=== PATIENT | female | born 1990 | race Caucasian/White ===

== ENCOUNTER 2017-11-07 00:05 | Inpatient (IN) | payer OTHER ==
[2017-11-07 00:19] VITALS: BMI 25.8
--- NOTE | 2017-11-07 00:51 | PDOC ---
History of Present Illness - General Chief Complaint: Pain Stated Complaint: PAIN,BACK Time Seen by Provider: 11/07/17 00:23 - History of Present Illness Initial Comments: 11/07/17 00:44 CHIEF COMPLAINT: pain to rectum HISTORY OF PRESENT ILLNESS: 27 yo F with hx of hemorrhoids presents to ED with rectal pain x 2 days. Patient reports she was told to have "bottom hemorrhoid" removed before, "but I never followed up because it stopped hurting." She reports that the pain to her anus has become so severe she can not walk or sit without excruciating pain. She reports pain and difficulty with BM and even urination, but denies any rectal bleeding. Last BM was yesterday "but just a little bit because it hurt so much." Denies fever, but reports some nausea earlier today . PAST MEDICAL HISTORY: as per HPI FAMILY HISTORY: Denies SOCIAL HISTORY: Denies tobacco, alcohol, illicit drug use. SURGICAL HISTORY: Denies ALLERGIES: No known drug allergies REVIEW OF SYSTEMS General/Constitutional: Denies fever or chills. Denies weakness. HEENT: Denies change in vision. Denies ear pain or discharge. Denies sore throat. Cardiovascular: Denies chest pain or shortness of breath. Respiratory: Denies cough, wheezing, or hemoptysis. Gastrointestinal: Nausea earlier today. Denies vomiting, diarrhea or constipation. Denies rectal bleeding. Genitourinary: Severe pain to rectal area x 2 days. Musculoskeletal: Denies joint or muscle swelling or pain. Denies neck or back pain. Skin and breasts: Denies rash or easy bruising. Neurologic: Denies headache, vertigo, loss of consciousness, or loss of sensation. PHYSICAL EXAM General Appearance: Well-appearing, appropriately dressed. No apparent distress. HEENT: EOMI, PERRLA, normal ENT inspection, normal voice, TMs normal, pharynx normal. No conjunctival pallor. No photophobia, scleral icterus. Respiratory/Chest: Lungs CTAB. Cardiovascular: RRR. S1, S2. Gastrointestinal/Abdominal: Normal bowel sounds. Abdomen soft, non-distended. No tenderness or rebound tenderness. No organomegaly, pulsatile mass, guarding , hernia, hepatomegaly, splenomegaly. Rectal exam: Swollen linear vesicular nodule extending to entire gluteal cleft with TTP, without erythema, drainage, bleeding, streaking, or varices appreciated. Digital exam negative for tunneling or marked tenderness to internal anorectal region. Musculoskeletal/Extremities: Normal inspection. FROM of all extremities, normal capillary refill. Pelvis Stable. No CVA tenderness. No tenderness to extremities, pedal edema, swelling, erythema or deformity. Integumentary: Appropriate color, dry, warm. No cyanosis, erythema, jaundice or rash Neurologic: life enrichment specialist II-XII intact. Fully oriented, alert. Appropriate mood/affect. Motor strength 5/5. No appreciable EOM palsy, facial droop or sensory deficit. Past History - Past Medical History Allergies/Adverse Reactions: Allergies Allergy/AdvReac Type Severity Reaction Status Date / Time No Known Allergies Allergy Verified 11/07/17 00:18 Asthma: Yes COPD: No - Suicide/Smoking/Psychosocial Hx Smoking History: Never smoked *Physical Exam - Vital Signs Last Vital Signs Temp Pulse Resp BP Pulse Ox 98.4 F 94 H 18 133/71 100 11/07/17 00:06 11/07/17 00:06 11/07/17 00:06 11/07/17 00:06 11/07/17 00:06 ED Treatment Course - LABORATORY CBC & Chemistry Diagram: 11/07/17 00:53 11/07/17 00:53 - RADIOLOGY Radiology Studies Ordered: Category Date Time Status PELVIS CT WITH CONTRAST [CT] Stat CT Scan 11/07/17 00:41 Ordered Medical Decision Making - Medical Decision Making 11/07/17 00:51 27 yo F with hx of hemorrhoids presents to ED with rectal pain x 2 days. DDx includes thrombosed hemorrhoid vs perirectal abscess. -CT pelvis eval possible perirectal abscess -labs 11/07/17 01:32 WBC 17.8, labs otherwise unremarkable Awaiting CT. 11/07/17 03:27 CT positive for perirectal abscess, will admit for surgical consult in am. -morphine for pain -Levaquin & Flagyl IV -fluids 11/07/17 03:30 Discussed case with hospitalist resident MD Stearns; patient accepted for inpatient admission. 11/07/17 03:41 Patient's repeat VS - temp 99.7 and tachy to 97, will get blood cx and lactate to eval for sepsis prior to initiating abx. *DC/Admit/Observation/Transfer Diagnosis at time of Disposition: Perirectal abscess - Discharge Dispostion Decision to Admit order: Yes - Referrals - Patient Instructions - Post Discharge Activity
--- NOTE | 2017-11-07 01:00 | PDOC ---
*Physical Exam - Vital Signs Last Vital Signs Temp Pulse Resp BP Pulse Ox 98.4 F 94 H 18 133/71 100 11/07/17 00:06 11/07/17 00:06 11/07/17 00:06 11/07/17 00:06 11/07/17 00:06 ED Treatment Course - LABORATORY CBC & Chemistry Diagram: 11/07/17 00:53 11/07/17 00:53 Medical Decision Making - Medical Decision Making 11/07/17 01:00 agree with care from MIRIAN Sun *DC/Admit/Observation/Transfer Diagnosis at time of Disposition: Perirectal abscess - Discharge Dispostion Condition at time of disposition: Improved - Referrals - Patient Instructions - Post Discharge Activity
[2017-11-07 01:05] LABS: HEMATOCRIT 41.3 % (32.4-45.2); HEMOGLOBIN 13.7 GM/dL (10.7-15.3); MCH 28.9 pg (25.7-33.7); MCHC 33.1 g/dl (32.0-36.0); MEAN CELL VOLUME 87.4 fl (80-96); MEAN PLT VOLUME 8.4 fl (7.5-11.1); PLATELET COUNT 348 K/MM3 (134-434); RBC 4.73 M/mm3 (3.60-5.2); RDW 12.9 % (11.6-15.6); WHITE BLOOD COUNT 17.8 K/mm3 (4.0-10.0)
[2017-11-07 01:19] LABS: INR 1.07 (0.82-1.09); PROTHROMBIN TIME (PATIENT) 12.1 SEC (9.7-13.0)
[2017-11-07 01:22] LABS: ACTIVATED PTT 36.1 SECONDS (25.2-36.5)
[2017-11-07 01:29] LABS: ALBUMIN 4.3 g/dl (3.4-5.0); ALK PHOS 101 U/L (45-117); ANION GAP 11 (8-16); BILIRUBIN,TOTAL 0.3 mg/dL (0.2-1.0); BLOOD UREA NITROGEN 13 mg/dL (7-18); CALCIUM 8.9 mg/dL (8.5-10.1); CHLORIDE 107 mmol/L (98-107); CO2 24 mmol/L (21-32); CREATININE 0.6 mg/dL (0.55-1.02); GLUCOSE,RANDOM 90 mg/dL (74-106); POTASSIUM 3.5 mmol/L (3.5-5.1); SGOT/AST 15 U/L (15-37); SGPT/ALT 17 U/L (12-78); SODIUM 142 mmol/L (136-145); TOT PROT 7.4 g/dl (6.4-8.2)
[2017-11-07] MEDS ORDERED: morphine CARPU-JECT 2 MG/1 ML DISP.SYRIN IVPUSH ONE (03:26)
[2017-11-07] MEDS ORDERED: MORPHINE SULFATE 2 MG/ML VIAL ONE ×2 (03:32→08:12)
[2017-11-07] MEDS ORDERED: ACETAMINOPHEN 325 MG TABLET (FP) PO ONE (03:38)
[2017-11-07] MEDS: LACTATED RINGERS SOLUTION 1,000 ML/1,000 ML INFUS.BAG IV SCH ×2 (03:40→08:43)
[2017-11-07] MEDS ORDERED: ACETAMINOPHEN 325 MG TABLET (FP) ONE (03:53)
--- NOTE | 2017-11-07 03:58 | PN ---
Teaching Attending Note Name of Resident: Casa Feng ATTENDING PHYSICIAN STATEMENT I saw and evaluated the patient. I reviewed the resident's note and discussed the case with the resident. I agree with the resident's findings and plan as documented. SUBJECTIVE: Patient is a 27 year old woman with PMH of hemorrhoids who presents to ER with rectal pain for 2 days. Patient reports she was told to have "bottom hemorrhoid " removed before, but I never followed up because it stopped hurting. She reports that the pain has become so severe she can not walk or sit without excruciating pain. She reports pain and difficulty with BM and even urination, but denies any rectal bleeding. Last BM was yesterday "but just a little bit because it hurt so much." She has some constipation. Denies fever, but reports some nausea earlier today. OBJECTIVE: Alert and in no acute distress Vital Signs Period Temp Pulse Resp BP Sys/Guillaume Pulse Ox Last 24 Hr 98.4 F-99.7 F 94-97 18-18 133-136/71-79 100-100 HEENT: No Jaundice, eye redness or discharge, PERRLA, EOMI. Normocephalic, atraumatic. External ears are normal and hearing is grossly intact. No nasal discharge. Neck: Supple, nontender. No palpable adenopathy or thyromegaly. No JVD Chest: Good effort. Clear to auscultation and percussion. Heart: Regular. No S3, rub or murmur Abdomen: Not distended, soft, nontender and no HSM. No rebound or guarding. Normoactive bowel sounds. Ext: Peripheral pulses intact. No leg edema. Abscess along the medial left gluteal cleft - tender. Skin: Warm and dry. No petechiae, rash or ecchymosis. Neuro: Alert. Oriented x3. CN 2-12 grossly intact. Sensation grossly intact in all four extremities and DTR are symmetric. Current Medications Generic Name Dose Route Start Last Admin Trade Name Freq PRN Reason Stop Dose Admin Metronidazole 500 mg in 100 mls @ 100 mls/hr 11/07/17 03:23 11/07/17 03:40 Flagyl 500mg Premixed Ivpb - IVPB 11/07/17 04:22 100 mls/hr ONCE ONE Administration Levofloxacin 750 mg in 150 mls @ 100 mls/hr 11/07/17 03:23 Levaquin 750 Mg Premixed Ivpb - IVPB 11/07/17 04:52 ONCE ONE Protocol Lactated Ringer's 1,000 ml in 1,000 mls @ 100 mls/hr 11/07/17 03:30 11/07/17 03:40 Lactated Ringers Solution IV 100 mls/hr ASDIR KAMALA Administration Abnormal Lab Results 11/07/17 00:53 WBC 17.8 H ASSESSMENT AND PLAN: 1. Perirectal Abscess - CT scan of the pelvis confirms a 3.4 x 1.6 cm midline posterior perirectal abscess. Will treat with IV Flagyl 500 mg q 8 hours and Levofloxacin 750 mg IV QD, IV LR at 100 ml/hour and consult the surgeon. Keep her NPO. Would benefit from sitz bath if surgery is not an immediate option. Morphine IV for pain control and Miralax for constipation. 2. DVT prophylaxis - Heparin 5000u sq tid. 3. Advance directives - Full code
[2017-11-07] MEDS ORDERED: POLYETHYLENE GLYCOL 3350 119 GM BTL PO ONE (05:00)
[2017-11-07] MEDS ORDERED: SODIUM CHLORIDE 1,000 ML IV SCH (05:00)
[2017-11-07] MEDS ORDERED: LACTATED RINGERS SOLUTION 1,000 ML/1,000 ML INFUS.BAG IV SCH ×2 (05:00→10:26)
--- NOTE | 2017-11-07 05:24 | HP ---
CHIEF COMPLAINT: perirectal pain PCP: HISTORY OF PRESENT ILLNESS: 27 y/o female with PMH asthma, and hemorrhoids, presents with worsening rectal pain for the past two days. States that the pain was sharp, gradual in onset, and exacerbated with bowel movement. At its worst pain is 10/10 and localized to perianal area and associated with nausea. Denies hematochezia or drainage, but admits to scant blood on tissue paper after bowel movement. Admits to constipation ever since she was young, that she self medicated with OTC fiber supplements. She endorses history of hemorrhoids for the past two years. She did not seek follow up for excision of hemorrhoids after diagnosis as she was unable to take time from work. Denies fevers, chills, shortness of breath, chest pain, vomiting, diarrhea, melena. ER course was notable for: (1) Morphine, Metronidazole, Levofloxacin, LR, Tylenol (2) CT abdomen/ pelvis (3) Recent Travel: PAST MEDICAL HISTORY: asthma, hemorrhoids PAST SURGICAL HISTORY: denies Social History: Smoking: denies Alcohol: denies Drugs: denies Family History: denies significant family history Allergies NKDA No Known Allergies Allergy (Verified 11/07/17 00:18) HOME MEDICATIONS: REVIEW OF SYSTEMS CONSTITUTIONAL: Absent: fever, chills, diaphoresis, generalized weakness, malaise, loss of appetite. CARDIOVASCULAR: Absent: chest pain, syncope, lightheadedness, peripheral edema RESPIRATORY: Absent: cough, shortness of breath, dyspnea with exertion, hemoptysis GASTROINTESTINAL: Admits: constipation, dyschezia, nausea. Denies: abdominal pain, abdominal distension, vomiting, diarrhea, hematochezia GENITOURINARY: Absent: dysuria, frequency, urgency, hesitancy, hematuria, flank pain, genital pain NEUROLOGIC: Absent: headache, focal weakness or paresthesias, dizziness, PHYSICAL EXAMINATION Vital Signs - 24 hr 11/07/17 11/07/17 00:06 03:30 Temperature 98.4 F 99.7 F H Pulse Rate 94 H Pulse Rate [ 97 H Apical] Respiratory 18 18 Rate Blood Pressure 133/71 Blood Pressure 136/79 [Left Arm] O2 Sat by Pulse 100 100 Oximetry (%) GENERAL: Awake, alert, and fully oriented, in no acute distress. HEAD: Normal with no signs of trauma. EYES: Pupils equal, round and reactive to light, extraocular movements intact. EARS, NOSE, THROAT: Oropharynx clear without exudates. Moist mucous membranes. NECK: Normal range of motion, supple without lymphadenopathy. LUNGS: Breath sounds equal, clear to auscultation bilaterally. No wheezes, and no crackles. No accessory muscle use. HEART: Regular rate and rhythm, normal S1 and S2 without murmur, rub or gallop. ABDOMEN: Soft, nontender, not distended, normoactive bowel sounds, no guarding, no rebound, no masses. No hepatomegaly or splenomegaly. RECTAL: External hemorrhoid noted at 6 o'clock with swelling perianally along left gluteal cleft. Exquisitely tender to palpation. No bleeding, no drainage noted. EXTREMITIES: 2+ pulses, warm, well-perfused. No lower extremity edema. NEUROLOGICAL: Cranial nerves II-XII intact. Normal speech. PSYCHIATRIC: Cooperative. Appropriate mood and affect. Laboratory Results - last 24 hr 11/07/17 11/07/17 11/07/17 00:53 00:53 00:53 WBC 17.8 H RBC 4.73 Hgb 13.7 Hct 41.3 MCV 87.4 MCH 28.9 MCHC 33.1 RDW 12.9 Plt Count 348 MPV 8.4 PT with INR 12.10 INR 1.07 PTT (Actin FS) 36.1 Sodium Potassium Chloride Carbon Dioxide Anion Gap BUN Creatinine Creat Clearance w eGFR Random Glucose Lactic Acid Calcium Total Bilirubin AST ALT Alkaline Phosphatase Total Protein Albumin Urine HCG, Qual Negative 11/07/17 11/07/17 00:53 03:50 WBC RBC Hgb Hct MCV MCH MCHC RDW Plt Count MPV PT with INR INR PTT (Actin FS) Sodium 142 Potassium 3.5 Chloride 107 Carbon Dioxide 24 Anion Gap 11 BUN 13 Creatinine 0.6 Creat Clearance w eGFR > 60 Random Glucose 90 Lactic Acid 1.3 Calcium 8.9 Total Bilirubin 0.3 AST 15 ALT 17 Alkaline Phosphatase 101 Total Protein 7.4 Albumin 4.3 Urine HCG, Qual ASSESSMENT/PLAN: 27 y/o female with PMH asthma, and hemorrhoids, presents with worsening rectal pain for the past two days. Perirectal abscess -WBC 17.8, CT abdomen/ pelvis shows 3.4cm X 1.6cm midline perirectal abscess -F/U surgery consult for I&D -F/U blood cultures -Levofloxacin and Metronidazole -Miralax for constipation -Morphine for pain -IV LR -NPO FEN -IV Lactated Ringers at 100ml/ hr -No electrolyte abnormalities at this time -NPO pending surgery consult Prophylaxis -Heparin 5000units subq TID Disposition: Admit to medical-surgical floor Advance directives: full code Case discussed with outdoor recreation specialist attending. Visit type - Emergency Visit Emergency Visit: Yes ED Registration Date: 11/07/17 Care time: The patient presented to the Emergency Department on the above date and was hospitalized for further evaluation of their emergent condition. - New Patient This patient is new to me today: Yes Date on this admission: 11/07/17 - Critical Care Critical Care patient: No Hospitalist Screening - Colonoscopy Questionnaire Colonoscopy Questionnaire: Colonoscopy Questionnaire - Patient: 50 - 75 years old and never had a screening colonoscopy: Unknown History of colon or rectal polyps, or CA: Unknown History of IBD, Crohn's disease or UC: Unknown History of abdominal radiation therapy as a child: Unknown - Relative: 1 with colon or rectal CA, or polyps at age 60 or younger: Unknown Colon or rectal CA diagnosed at age 45 or younger: Unknown Multiple relatives with colon or rectal CA: Unknown - Outcome: Screening Result: Negative Screen
[2017-11-07] MEDS ORDERED: HEPARIN NA (PORCINE) 5,000 UNITS/ML 1ML VIAL ONE (05:32)
[2017-11-07] MEDS ORDERED: MORPHINE SULFATE 2 MG/ML VIAL IVPUSH PRN ×4 (05:38→16:28)
[2017-11-07] MEDS ORDERED: HEPARIN NA (PORCINE) 5,000 UNITS/ML 1ML VIAL SQ SCH (06:00)
--- NOTE | 2017-11-07 07:54 | PN ---
Physical Exam: SUBJECTIVE: Patient seen and examined at bedside. Complains of severe, worsening perianal pain of 3 days duration and mild intermittent nausea. No vomiting/constipaton/diarrhea, normal urination, no fevers or chills, no respiratory difficulty, no other complaints. OBJECTIVE: Vital Signs Period Temp Pulse Resp BP Sys/Guillaume Pulse Ox Last 24 Hr 98.4 F-99.7 F 94-97 18-18 133-136/71-79 100-100 GENERAL: The patient is awake, alert, and fully oriented, in no acute distress. HEAD: Normal with no signs of trauma. EYES: PERRLA, EOMI, sclera anicteric, conjunctiva clear, no ptosis ENT: Ears normal, nares patent, oropharynx clear without exudates, moist mucous membranes NECK: Trachea midline, full range of motion, supple. LUNGS: Breath sounds equal, clear to auscultation bilaterally, no wheezes, no crackles, no accessory muscle use HEART: Regular rate and rhythm, S1, S2 without murmur, rub or gallop. ABDOMEN: Soft, nontender, nondistended, normoactive bowel sounds, no guarding, no rebound, no hepatosplenomegaly, no masses EXTREMITIES: 2+ pulses, warm, well-perfused, no edema. NEUROLOGICAL: CNII-XII intact b/l, 5/5 strength x 4 extremities, sensorium intact PSYCH: Normal mood, normal affect. SKIN: Warm, dry, normal turgor, no rashes or lesions noted Rectal: 3-4 cm fluctuant midline manuela-anal abscess, mildly tender to palpation, per patient tenderness has decreased significantly since receiving morphine Laboratory Results - last 24 hr 11/07/17 11/07/17 11/07/17 00:53 00:53 00:53 WBC 17.8 H RBC 4.73 Hgb 13.7 Hct 41.3 MCV 87.4 MCH 28.9 MCHC 33.1 RDW 12.9 Plt Count 348 MPV 8.4 PT with INR 12.10 INR 1.07 PTT (Actin FS) 36.1 Sodium Potassium Chloride Carbon Dioxide Anion Gap BUN Creatinine Creat Clearance w eGFR Random Glucose Lactic Acid Calcium Total Bilirubin AST ALT Alkaline Phosphatase Total Protein Albumin Urine HCG, Qual Negative 11/07/17 11/07/17 00:53 03:50 WBC RBC Hgb Hct MCV MCH MCHC RDW Plt Count MPV PT with INR INR PTT (Actin FS) Sodium 142 Potassium 3.5 Chloride 107 Carbon Dioxide 24 Anion Gap 11 BUN 13 Creatinine 0.6 Creat Clearance w eGFR > 60 Random Glucose 90 Lactic Acid 1.3 Calcium 8.9 Total Bilirubin 0.3 AST 15 ALT 17 Alkaline Phosphatase 101 Total Protein 7.4 Albumin 4.3 Urine HCG, Qual Active Medications Generic Name Dose Route Start Last Admin Trade Name Freq PRN Reason Stop Dose Admin Heparin Sodium (Porcine) 5,000 unit 11/07/17 06:00 11/07/17 05:38 Heparin - SQ 5,000 unit TID KAMALA Administration Lactated Ringer's 1,000 ml in 1,000 mls @ 100 mls/hr 11/07/17 03:30 11/07/17 03:40 Lactated Ringers Solution IV 100 mls/hr ASDIR KAMALA Administration Lactated Ringer's 1,000 ml in 1,000 mls @ 100 mls/hr 11/07/17 05:00 11/07/17 05:28 Lactated Ringers Solution IV Not Given ASDIR KAMALA Levofloxacin 750 mg in 150 mls @ 150 mls/hr 11/08/17 10:00 Levaquin 750 Mg Premixed Ivpb - IVPB DAILY KAMALA Protocol Metronidazole 500 mg in 100 mls @ 100 mls/hr 11/07/17 10:00 Flagyl 500mg Premixed Ivpb - IVPB Q8H-IV KAMALA Morphine Sulfate 2 mg 11/07/17 05:38 Morphine Sulfate IVPUSH Q6H PRN PAIN LEVEL 7 - 10 ASSESSMENT/PLAN: 27 y/o F w/ PMHx asthma and hemorrhoids, admitted for perianal abscess #Perianal abscess -WBC 17.8 and HR 97, therefore meets sepsis criteria -CT abdomen/ pelvis shows 3.6 X 2.5 x 4.4 cm fluid collection -fluctuant, closed midline lesion -underwent surgical I&D without complication -ID consulted -f/u blood cultures, awaiting abscess culture -IV levofloxacin and metronidazole empirically -Morphine for pain -IV LR #FEN -IV LR @ 75 -lytes wnl -regular diet after Sx #PPx -heparin subq -senna/colace #Dispo -med/surg #Code -full Visit type - Emergency Visit Emergency Visit: No - New Patient This patient is new to me today: Yes Date on this admission: 11/07/17 - Critical Care Critical Care patient: No
--- NOTE | 2017-11-07 09:37 | CONSULT ---
Consult Consult Specialty:: General Surgery Referred by:: Dr. Sun Reason for Consultation:: perirectal abscess - History of Present Illness Chief Complaint: low back/perirectal pain x 3d with swelling History of Present Illness: 27yo F with asthma not on maintenance meds, IUD, hemorrhoids presents to ER with 3d of low back/anorectal pain progressively worsening and then associated with local swelling and more difficulty with stooling. Last BM was small and loose. No F/C, + nausea but no vomiting, last po was last night except a little water in ED. In ER, she is afebrile but temp now 99.7, has wbc 17.8, and CT shows posterior perirectal abscess in midline. She has gotten IV fluids, antibiotics and pain meds. She was admitted to hospitalist team overnight by ED. Surgery is consulted for drainage. Pt is seen and examined in ER holding area. She is uncomfortable but better after medication. She reports pain slightly more to left side. Ambulated to bathroom just after exam. - History Source History Provided By: Patient Limitations to Obtaining History: No Limitations - Past Medical History Pulmonary: Yes: Asthma Gastrointestinal: Yes: Hemorrhoids ...: No - Past Surgical History Past Surgical History: Yes: None Additional Surgical History: IUD placement - Alcohol/Substance Use Hx Alcohol Use: Yes (social) History of Substance Use: reports: None - Smoking History Smoking history: Never smoked Have you smoked in the past 12 months: No - Social History ADL: Independent Occupation: salesperson/international manager Medications - Allergies Allergies/Adverse Reactions: Allergies Allergy/AdvReac Type Severity Reaction Status Date / Time No Known Allergies Allergy Verified 11/07/17 00:18 - Home Medications Home Medications (free text): albuterol inhaler prn - uses 4-5x/year, last time was ~6mos ago Family Disease History - Family Disease History Family History: Unremarkable (noncontributory) Review of Systems - Review of Systems Constitutional: denies: Chills, Fever Eyes: denies: Blurred Vision, Recent Change in Vision HENT: denies: Difficult Swallowing, Throat Pain Neck: denies: Swollen Glands, Tenderness Cardiovascular: denies: Chest Pain, Palpitations Respiratory: denies: Cough, SOB Gastrointestinal: reports: Nausea. denies: Abdominal Pain, Constipation, Diarrhea, Vomiting Genitourinary: denies: Burning, Dysuria Musculoskeletal: reports: Back Pain (lower/anorectal pain). denies: Joint Pain , Muscle Pain Integumentary: reports: Lump (posterior anorectal area). denies: Change in Color, Rash Neurological: denies: Dizziness, Headache Psychiatric: denies: Anxiety, Depression Physical Exam Vital Signs: Vital Signs Temperature 99.7 F H 11/07/17 03:30 Pulse Rate 97 H 11/07/17 03:30 Respiratory Rate 18 11/07/17 03:30 Blood Pressure 136/79 11/07/17 03:30 O2 Sat by Pulse Oximetry (%) 100 11/07/17 03:30 Constitutional: Yes: Well Nourished, No Distress, Calm Eyes: Yes: Conjunctiva Clear, EOM Intact HENT: Yes: Atraumatic, Normocephalic Neck: Yes: Supple, Trachea Midline Cardiovascular: Yes: Regular Rate and Rhythm. No: Murmur Respiratory: Yes: Regular, CTA Bilaterally Gastrointestinal: Yes: Normal Bowel Sounds, Soft. No: Distention, Tenderness ...Rectal Exam: Yes: Inflammation, Sphincter Tone Normal, Other (tender swelling in midline extending posteriorly from anus over 3-4cm; no mass or gross blood internally, tender posteriorly not anteriorly, no purulence; hemorrhoid not clearly appreciated at this time) Renal/: No: CVA Tenderness - Left, CVA Tenderness - Right Musculoskeletal: No: Joint Stiffness, Joint Swelling Extremities: No: Cool, Cyanosis Edema: No Peripheral Pulses WNL: Yes Integumentary: Yes: Body Piercing (left nasal piercing), Tattoos. No: Jaundice , Rash Neurological: Yes: Alert, Oriented. No: Unsteady Gait Psychiatric: Yes: Alert, Oriented Labs: CBC, BMP 11/07/17 00:53 11/07/17 00:53 CMP Sodium 142 mmol/L (136-145) 11/07/17 00:53 Potassium 3.5 mmol/L (3.5-5.1) 11/07/17 00:53 Chloride 107 mmol/L (98-107) 11/07/17 00:53 Carbon Dioxide 24 mmol/L (21-32) 11/07/17 00:53 Anion Gap 11 (8-16) 11/07/17 00:53 BUN 13 mg/dL (7-18) 11/07/17 00:53 Creatinine 0.6 mg/dL (0.55-1.02) 11/07/17 00:53 Creat Clearance w eGFR > 60 (>60) 11/07/17 00:53 Random Glucose 90 mg/dL (74-106) 11/07/17 00:53 Lactic Acid 1.3 mmol/L (0.0-2.0) 11/07/17 03:50 Calcium 8.9 mg/dL (8.5-10.1) 11/07/17 00:53 Total Bilirubin 0.3 mg/dL (0.2-1.0) 11/07/17 00:53 AST 15 U/L (15-37) 11/07/17 00:53 ALT 17 U/L (12-78) 11/07/17 00:53 Alkaline Phosphatase 101 U/L (45-117) 11/07/17 00:53 Total Protein 7.4 g/dl (6.4-8.2) 11/07/17 00:53 Albumin 4.3 g/dl (3.4-5.0) 11/07/17 00:53 INR, PTT INR 1.07 (0.82-1.09) 11/07/17 00:53 Imaging - Results Cat Scan: Report Reviewed, Image Reviewed (images personally reviewed - posterior midline perirectal abscess with ~3x4cm fluid collection, inflammation possibly slightly more on left than right) Problem List - Problems (1) Perirectal abscess Assessment/Plan: admitted to hospitalist by ER pain meds prn NPO/IVF until after OR IV antibiotics started (Levo/Flagyl), ID consulted Pt reports possible PCN allergy in childhood per parents, unknown reaction Discussed with patient risks, benefits and alternatives of incision and drainage of perirectal abscess, including but not limited to bleeding, infection , injury to adjacent structures (sphincter), anal fistula; alternatives include antibiotics, delayed or no surgery - risks of this include sepsis, fistula, need for more extensive surgery. Patient desires to proceed with operation - will take to OR for above. Informed consent signed for same. anticipate resumption of po postoperatively will need bowel regimen to ensure soft, regular BMs Code(s): K61.1 - RECTAL ABSCESS (2) Anorectal pain Code(s): K62.89 - OTHER SPECIFIED DISEASES OF ANUS AND RECTUM (3) Leukocytosis Code(s): D72.829 - ELEVATED WHITE BLOOD CELL COUNT, UNSPECIFIED Qualifiers: Leukocytosis type: unspecified Qualified Code(s): D72.829 - Elevated white blood cell count, unspecified (4) Asthma Assessment/Plan: MDI or nebs prn Code(s): J45.909 - UNSPECIFIED ASTHMA, UNCOMPLICATED Qualifiers: Asthma severity: mild Asthma persistence: intermittent Asthma complication type: uncomplicated Qualified Code(s): J45.20 - Mild intermittent asthma, uncomplicated
[2017-11-07] MEDS ORDERED: MEROPENEM 1 GM in DEXTROSE 5%-WATER 100 ML IVPB ONE (12:03)
[2017-11-07] MEDS ORDERED: MIDAZOLAM HCL 2 MG/2 ML SINGLE DOSE VIAL ONE (14:19)
[2017-11-07] MEDS ORDERED: PROPOFOL 20 ML ONE ×2 (14:29→14:48)
[2017-11-07] MEDS ORDERED: LIDOCAINE HCL/PF 2% SDV 5ML VIAL ONE (14:33)
[2017-11-07] MEDS ORDERED: DEXAMETHASONE SOD PHOSPHATE 4 MG/1 ML VIAL ONE (14:33)
[2017-11-07] MEDS ORDERED: ONDANSETRON 4 MG/2 ML VIAL ONE (14:33)
[2017-11-07] MEDS ORDERED: ACETAMINOPHEN 325 MG TABLET (FP) PO SCH (15:00)
[2017-11-07] MEDS ORDERED: ONDANSETRON 4 MG/2 ML VIAL IVPUSH PRN (15:17)
--- NOTE | 2017-11-07 15:21 | OP ---
Operative Note - Note: Operative Date: 11/07/17 Pre-Operative Diagnosis: posterior perirectal abscess Operation: incision and drainage of posterior perirectal abscess Findings: ~30ml pus, culture taken; tip of 24Fr coude catheter left in abscess cavity, sutured to skin Post-Operative Diagnosis: Same as Pre-op Surgeon: Aubrey Urbina Machine Repairer: Sulema Farris Anesthesiologist/COMMUNICATION CONSULTANT: Nikko Merino Anesthesia: General (without airway) Specimens Removed: culture swab to micro Estimated Blood Loss (mls): 5 Drains & Tubes with Location: 24Fr coude catheter tip in abscess cavity Fluid Volume Replaced (mls): 400 (crystalloid) Operative Report Dictated: Yes
[2017-11-07] MEDS ORDERED: LACTATED RINGERS SOLUTION 1,000 ML IV SCH (15:30)
[2017-11-07] MEDS ORDERED: oxyCODONE HCL 5 MG TABLET PO PRN ×2 (15:30→16:28)
[2017-11-07] MEDS ORDERED: IBUPROFEN 600 MG TABLET (FP) PO SCH (18:00)
[2017-11-07] MEDS ORDERED: CLINDAMYCIN 600MG PREMIX IVPB 600 MG/50 ML BAG IVPB SCH (18:00)
[2017-11-07] MEDS: CLINDAMYCIN 600MG PREMIX IVPB 600 MG/50 ML BAG IVPB SCH (18:21)
[2017-11-07] MEDS: IBUPROFEN 600 MG TABLET (FP) PO SCH (18:21)
--- NOTE | 2017-11-07 18:34 | CON.ID ---
Consult Consult Specialty:: infectious diseases Referred by:: dr baig Reason for Consultation:: glueteal abscess - History of Present Illness Chief Complaint: rectal pain and swelling History of Present Illness: 27yo F with asthma , IUD, hemorrhoids came to the hospital because of couple of days of ano rectal pain which was associated with stooling and loose bm patient was worked up in the ER including and CT shows posterior perirectal abscess in midline. surgery evaluated and the patient was taken to the operating room and patient underwent i and d of the abscess i was called on board for abx management and the abx patient needs - History Source History Provided By: Patient Limitations to Obtaining History: No Limitations - Past Medical History Pulmonary: Yes: Asthma Gastrointestinal: Yes: Hemorrhoids ...: No - Past Surgical History Past Surgical History: Yes: None Additional Surgical History: IUD placement - Alcohol/Substance Use Hx Alcohol Use: Yes (social) History of Substance Use: reports: None - Smoking History Smoking history: Never smoked Have you smoked in the past 12 months: No - Social History ADL: Independent Occupation: salesperson/plant engineering manager Medications - Allergies Allergies/Adverse Reactions: Allergies Allergy/AdvReac Type Severity Reaction Status Date / Time Penicillins Allergy Unknown Unverified 11/07/17 11:11 - Home Medications Home Medications: Ambulatory Orders Albuterol Sulfate Inhaler - IH 11/07/17 Acetaminophen [Tylenol .Regular Strength -] 650 mg PO Q6H tablet 11/08/17 Ibuprofen [Motrin -] 600 mg PO Q6H tablet 11/08/17 Sulfamethoxazole/Trimethoprim [Bactrim Ds -] 1 tab PO BID #10 tablet 11/08/17 Review of Systems - Review of Systems Constitutional: reports: No Symptoms Eyes: reports: No Symptoms HENT: reports: No Symptoms Neck: reports: No Symptoms Cardiovascular: reports: No Symptoms Respiratory: reports: No Symptoms Gastrointestinal: reports: No Symptoms Musculoskeletal: reports: No Symptoms Integumentary: reports: No Symptoms Neurological: reports: No Symptoms Endocrine: reports: No Symptoms Hematology/Lymphatic: reports: No Symptoms Psychiatric: reports: No Symptoms Physical Exam Vital Signs: Vital Signs Temperature 98.3 F 11/07/17 17:16 Pulse Rate 80 11/07/17 17:16 Respiratory Rate 16 11/07/17 17:16 Blood Pressure 121/57 11/07/17 17:16 O2 Sat by Pulse Oximetry (%) 99 11/07/17 17:14 Constitutional: Yes: Well Nourished, Calm, Mild Distress Eyes: Yes: Conjunctiva Clear HENT: Yes: Atraumatic, Normocephalic Neck: Yes: Supple, Trachea Midline Cardiovascular: Yes: Regular Rate and Rhythm Respiratory: Yes: Regular, CTA Bilaterally Gastrointestinal: Yes: Normal Bowel Sounds, Soft ...Rectal Exam: Yes: Other (dressing present) Musculoskeletal: Yes: WNL Extremities: Yes: WNL Integumentary: Yes: Other Wound/Incision: Yes: Dressing Dry and Intact Neurological: Yes: Alert, Oriented Psychiatric: Yes: Alert, Oriented Labs: CBC, BMP 11/07/17 00:53 11/07/17 00:53 Imaging - Results Cat Scan: Report Reviewed, Image Reviewed Assessment/Plan Problem List - Problems (1) Perirectal abscess Code(s): K61.1 - RECTAL ABSCESS (2) Anorectal pain Code(s): K62.89 - OTHER SPECIFIED DISEASES OF ANUS AND RECTUM (3) Leukocytosis Code(s): D72.829 - ELEVATED WHITE BLOOD CELL COUNT, UNSPECIFIED Qualifiers: Leukocytosis type: unspecified Qualified Code(s): D72.829 - Elevated white blood cell count, unspecified (4) Asthma Code(s): J45.909 - UNSPECIFIED ASTHMA, UNCOMPLICATED Qualifiers: Asthma severity: mild Asthma persistence: intermittent Asthma complication type: uncomplicated Qualified Code(s): J45.20 - Mild intermittent asthma, uncomplicated plan continue iv abx await for cx report once we have that and surgery clears then will decide what abx patient will go home on rest as per the team
--- NOTE | 2017-11-07 19:43 | PN ---
Teaching Attending Note Name of Resident: Adi Lackey ATTENDING PHYSICIAN STATEMENT I saw and evaluated the patient. I reviewed the resident's note and discussed the case with the resident. I agree with the resident's findings and plan as documented. SUBJECTIVE: Patient is s/p I&D, feeling better. OBJECTIVE: Vital Signs Temperature 98.3 F 11/07/17 18:00 Pulse Rate 80 11/07/17 18:00 Respiratory Rate 20 11/07/17 18:00 Blood Pressure 121/57 11/07/17 18:00 O2 Sat by Pulse Oximetry (%) 99 11/07/17 17:14 CBCD WBC 17.8 K/mm3 (4.0-10.0) H 11/07/17 00:53 RBC 4.73 M/mm3 (3.60-5.2) 11/07/17 00:53 Hgb 13.7 GM/dL (10.7-15.3) 11/07/17 00:53 Hct 41.3 % (32.4-45.2) 11/07/17 00:53 MCV 87.4 fl (80-96) 11/07/17 00:53 MCHC 33.1 g/dl (32.0-36.0) 11/07/17 00:53 RDW 12.9 % (11.6-15.6) 11/07/17 00:53 Plt Count 348 K/MM3 (134-434) 11/07/17 00:53 MPV 8.4 fl (7.5-11.1) 11/07/17 00:53 CMP Sodium 142 mmol/L (136-145) 11/07/17 00:53 Potassium 3.5 mmol/L (3.5-5.1) 11/07/17 00:53 Chloride 107 mmol/L (98-107) 11/07/17 00:53 Carbon Dioxide 24 mmol/L (21-32) 11/07/17 00:53 Anion Gap 11 (8-16) 11/07/17 00:53 BUN 13 mg/dL (7-18) 11/07/17 00:53 Creatinine 0.6 mg/dL (0.55-1.02) 11/07/17 00:53 Creat Clearance w eGFR > 60 (>60) 11/07/17 00:53 Random Glucose 90 mg/dL (74-106) 11/07/17 00:53 Calcium 8.9 mg/dL (8.5-10.1) 11/07/17 00:53 Total Bilirubin 0.3 mg/dL (0.2-1.0) 11/07/17 00:53 AST 15 U/L (15-37) 11/07/17 00:53 ALT 17 U/L (12-78) 11/07/17 00:53 Alkaline Phosphatase 101 U/L (45-117) 11/07/17 00:53 Total Protein 7.4 g/dl (6.4-8.2) 11/07/17 00:53 Albumin 4.3 g/dl (3.4-5.0) 11/07/17 00:53 Current Medications Generic Name Dose Route Start Last Admin Trade Name Freq PRN Reason Stop Dose Admin Acetaminophen 650 mg 11/07/17 21:00 Tylenol - PO Q6H KAMALA Bisacodyl 10 mg 11/08/17 10:00 Dulcolax - PO DAILY [facility] Docusate Sodium 300 mg 11/07/17 22:00 Colace - PO HS KAMALA Clindamycin Phosphate 600 mg in 50 mls @ 100 mls/hr 11/07/17 18:00 11/07/17 18:21 Cleocin 600 Mg Premix Ivpb - IVPB 100 mls/hr Q8H-IV KAMALA Administration Protocol Meropenem 1 gm/ Dextrose 100 mls @ 200 mls/hr 11/07/17 20:00 IVPB Q8H-IV KAMALA Ibuprofen 600 mg 11/07/17 18:00 11/07/17 18:21 Motrin - PO 600 mg Q6H KAMALA Administration Morphine Sulfate 2 mg 11/07/17 16:28 Morphine Sulfate IVPUSH Q4H PRN Pain Level 7 - 10 BREAKTHROUGH Oxycodone HCl 5 mg 11/07/17 16:28 Roxicodone - PO Q4H PRN Pain Level 7 - 10 BREAKTHROUGH Home Medications Medication Instructions Recorded Albuterol Sulfate Inhaler - 11/07/17 PE: per resident's note ASSESSMENT AND PLAN: Patient is a 27 y/o F w/ PMHx asthma and hemorrhoids, admitted for perianal abscess #POD#0 Perianal abscess s/p surgical I&D without complication, IVF, morphine for pain on IV meropenem and Clindamycin day #1 as per ID DVt Px: heparin subq
[2017-11-07] MEDS: MEROPENEM 1 GM in DEXTROSE 5%-WATER 100 ML IVPB SCH (21:05)
[2017-11-07] MEDS: ACETAMINOPHEN 325 MG TABLET (FP) PO SCH (21:06)
[2017-11-07] MEDS ORDERED: DOCUSATE SODIUM 100 MG CAPSULE (FP) PO SCH ×2 (22:00)
[2017-11-07] MEDS ORDERED: SENNOSIDES/DOCUSATE COMBO (SENNA PLUS) TABLET (UD) PO SCH (22:00)
[2017-11-08] MEDS: IBUPROFEN 600 MG TABLET (FP) PO SCH ×3 (01:15→12:00)
[2017-11-08] MEDS: MEROPENEM 1 GM in DEXTROSE 5%-WATER 100 ML IVPB SCH ×2 (01:17→10:18)
[2017-11-08] MEDS: CLINDAMYCIN 600MG PREMIX IVPB 600 MG/50 ML BAG IVPB SCH ×2 (01:17→09:35)
[2017-11-08] MEDS: ACETAMINOPHEN 325 MG TABLET (FP) PO SCH ×2 (03:00→08:45)
[2017-11-08 06:53] LABS: BASO % 0.2 % (0-2.0); HEMOGLOBIN 13.2 GM/dL (10.7-15.3); LYMPH % 6.5 % (8-40); MCH 30.5 pg (25.7-33.7); MCHC 34.7 g/dl (32.0-36.0); MEAN CELL VOLUME 87.8 fl (80-96); MEAN PLT VOLUME 8.2 fl (7.5-11.1); MONO % 7.5 % (3.8-10.2); NEUT % 85.8 % (42.8-82.8); PLATELET COUNT 309 K/MM3 (134-434); RBC 4.33 M/mm3 (3.60-5.2); RDW 12.7 % (11.6-15.6); WHITE BLOOD COUNT 12.7 K/mm3 (4.0-10.0)
--- NOTE | 2017-11-08 06:55 | PN ---
Physical Exam: SUBJECTIVE: Patient seen and examined at bedside. No acute complaints, surgery went well, pain well-controlled. Passing flatus, normal urination, no BM as yet. OBJECTIVE: Vital Signs Period Temp Pulse Resp BP Sys/Guillaume Pulse Ox Last 24 Hr 97.9 F-99.2 F 70-89 14-20 98-127/57-89 99-100 GENERAL: The patient is awake, alert, and fully oriented, in no acute distress. HEAD: Normal with no signs of trauma. EYES: PERRLA, EOMI, sclera anicteric, conjunctiva clear, no ptosis ENT: Ears normal, nares patent, oropharynx clear without exudates, moist mucous membranes NECK: Trachea midline, full range of motion, supple. LUNGS: Breath sounds equal, clear to auscultation bilaterally, no wheezes, no crackles, no accessory muscle use HEART: Regular rate and rhythm, S1, S2 without murmur, rub or gallop. ABDOMEN: Soft, nontender, nondistended, normoactive bowel sounds, no guarding, no rebound, no hepatosplenomegaly, no masses EXTREMITIES: 2+ pulses, warm, well-perfused, no edema. NEUROLOGICAL: CNII-XII intact b/l, 5/5 strength x 4 extremities, sensorium intact PSYCH: Normal mood, normal affect. SKIN: Warm, dry, normal turgor, no rashes or lesions noted Rectal: Perianal surgical incision with drain instilled, mildly tender, dressings bloody prior to change, no drainage observed Laboratory Results - last 24 hr 11/07/17 11/07/17 08:50 13:30 Blood Type O NEGATIVE O NEGATIVE Antibody Screen Negative Active Medications Generic Name Dose Route Start Last Admin Trade Name Adamq PRN Reason Stop Dose Admin Acetaminophen 650 mg 11/07/17 21:00 11/08/17 03:00 Tylenol - PO Not Given Q6H KAMALA Bisacodyl 10 mg 11/08/17 10:00 Dulcolax - PO DAILY KAMALA Docusate Sodium 300 mg 11/07/17 22:00 11/07/17 21:07 Colace - PO 300 mg HS KAMALA Administration Clindamycin Phosphate 600 mg in 50 mls @ 100 mls/hr 11/07/17 18:00 11/08/17 01:17 Cleocin 600 Mg Premix Ivpb - IVPB 100 mls/hr Q8H-IV KAMALA Administration Protocol Meropenem 1 gm/ Dextrose 100 mls @ 200 mls/hr 11/07/17 20:00 11/08/17 01:17 IVPB 200 mls/hr Q8H-IV KAMALA Administration Ibuprofen 600 mg 11/07/17 18:00 11/08/17 05:53 Motrin - PO Not Given Q6H KAMALA Morphine Sulfate 2 mg 11/07/17 16:28 Morphine Sulfate IVPUSH Q4H PRN Pain Level 7 - 10 BREAKTHROUGH Oxycodone HCl 5 mg 11/07/17 16:28 Roxicodone - PO Q4H PRN Pain Level 7 - 10 BREAKTHROUGH ASSESSMENT/PLAN: 27 y/o F w/ PMHx asthma and hemorrhoids, admitted for perianal abscess #Perianal abscess -On admission WBC 17.8 and HR 97, therefore met sepsis criteria -CT abdomen/ pelvis shows 3.6 X 2.5 x 4.4 cm fluid collection -POD1 s/p I&D, Sx was uneventful -mildly tender surgical incision with instilled drain -ID consulted -f/u cultures -Meropenem 1g q8 and Clinda 600mg q8 empirically -Morphine and oxycodone for pain #FEN -no fluids -lytes wnl -regular diet #PPx -SCDs -dulcolax/colace #Dispo -med/surg #Code -full
[2017-11-08 07:24] LABS: ANION GAP 6 (8-16); BLOOD UREA NITROGEN 12 mg/dL (7-18); CHLORIDE 107 mmol/L (98-107); CO2 26 mmol/L (21-32); CREATININE 0.5 mg/dL (0.55-1.02); GLUCOSE,RANDOM 120 mg/dL (74-106); POTASSIUM 4.2 mmol/L (3.5-5.1); SODIUM 139 mmol/L (136-145)
--- NOTE | 2017-11-08 07:53 | PN ---
Teaching Attending Note Name of Resident: Adi Lackey ATTENDING PHYSICIAN STATEMENT I saw and evaluated the patient. I reviewed the resident's note and discussed the case with the resident. I agree with the resident's findings and plan as documented. SUBJECTIVE: Patient is feeling better, mild gluteal soreness with minimal drainage. OBJECTIVE: Vital Signs Temperature 97.9 F 11/08/17 06:00 Pulse Rate 76 11/08/17 06:00 Respiratory Rate 20 11/08/17 06:00 Blood Pressure 108/89 11/08/17 06:00 O2 Sat by Pulse Oximetry (%) 100 11/07/17 22:00 CBCD WBC 12.7 K/mm3 (4.0-10.0) H 11/08/17 06:30 RBC 4.33 M/mm3 (3.60-5.2) 11/08/17 06:30 Hgb 13.2 GM/dL (10.7-15.3) 11/08/17 06:30 Hct 38.0 % (32.4-45.2) 11/08/17 06:30 MCV 87.8 fl (80-96) 11/08/17 06:30 MCHC 34.7 g/dl (32.0-36.0) 11/08/17 06:30 RDW 12.7 % (11.6-15.6) 11/08/17 06:30 Plt Count 309 K/MM3 (134-434) 11/08/17 06:30 MPV 8.2 fl (7.5-11.1) 11/08/17 06:30 CMP Sodium 139 mmol/L (136-145) 11/08/17 06:30 Potassium 4.2 mmol/L (3.5-5.1) 11/08/17 06:30 Chloride 107 mmol/L (98-107) 11/08/17 06:30 Carbon Dioxide 26 mmol/L (21-32) 11/08/17 06:30 Anion Gap 6 (8-16) L 11/08/17 06:30 BUN 12 mg/dL (7-18) 11/08/17 06:30 Creatinine 0.5 mg/dL (0.55-1.02) L 11/08/17 06:30 Creat Clearance w eGFR > 60 (>60) 11/08/17 06:30 Random Glucose 120 mg/dL (74-106) H 11/08/17 06:30 Calcium 9.0 mg/dL (8.5-10.1) 11/08/17 06:30 Total Bilirubin 0.3 mg/dL (0.2-1.0) 11/07/17 00:53 AST 15 U/L (15-37) 11/07/17 00:53 ALT 17 U/L (12-78) 11/07/17 00:53 Alkaline Phosphatase 101 U/L (45-117) 11/07/17 00:53 Total Protein 7.4 g/dl (6.4-8.2) 11/07/17 00:53 Albumin 4.3 g/dl (3.4-5.0) 11/07/17 00:53 Current Medications Generic Name Dose Route Start Last Admin Trade Name Freq PRN Reason Stop Dose Admin Acetaminophen 650 mg 11/07/17 21:00 11/08/17 03:00 Tylenol - PO Not Given Q6H KAMALA Bisacodyl 10 mg 11/08/17 10:00 Dulcolax - PO DAILY [facility] Docusate Sodium 300 mg 11/07/17 22:00 11/07/17 21:07 Colace - PO 300 mg HS KAMALA Administration Clindamycin Phosphate 600 mg in 50 mls @ 100 mls/hr 11/07/17 18:00 11/08/17 01:17 Cleocin 600 Mg Premix Ivpb - IVPB 100 mls/hr Q8H-IV KAMALA Administration Protocol Meropenem 1 gm/ Dextrose 100 mls @ 200 mls/hr 11/07/17 20:00 11/08/17 01:17 IVPB 200 mls/hr Q8H-IV KAMALA Administration Ibuprofen 600 mg 11/07/17 18:00 11/08/17 05:53 Motrin - PO Not Given Q6H KAMALA Morphine Sulfate 2 mg 11/07/17 16:28 Morphine Sulfate IVPUSH Q4H PRN Pain Level 7 - 10 BREAKTHROUGH Oxycodone HCl 5 mg 11/07/17 16:28 Roxicodone - PO Q4H PRN Pain Level 7 - 10 BREAKTHROUGH Home Medications Medication Instructions Recorded Albuterol Sulfate Inhaler - IH 11/07/17 Microbiology 11/07/17 15:00 Abscess Gram Stain - Final ( Many gram positive cocci) 11/07/17 03:50 Blood - Peripheral Venous Blood Culture - Preliminary NO GROWTH OBTAINED AFTER 24 HOURS, INCUBATION TO CONTINUE FOR 4 DAYS. 11/07/17 03:50 Blood - Peripheral Venous Blood Culture - Preliminary NO GROWTH OBTAINED AFTER 24 HOURS, INCUBATION TO CONTINUE FOR 4 DAYS. PE: AAOx3, NAD Chest: CTABL CVS: S1S2 positive, no murmur appreciated. ASSESSMENT AND PLAN: Patient is a 27 y/o F w/ PMHx asthma and hemorrhoids, admitted for perianal abscess #POD#1 s/p Perianal abscess s/p surgical I&D without any complication, s/p IV meropenem and Clindamycin day #2, patient is being discharged home on Bacrim Ds x 5 more days Blood culture no growth so far. the wound culture growing ( Many gram positive cocci) , as per ID to send the patient home on Bactrim Ds DVt Px: heparin subq
[2017-11-08] MEDS ORDERED: PT OWN MED DRAWER 7, Y5N ONE ×2 (09:24→11:57)
[2017-11-08] MEDS ORDERED: BISACODYL 5 MG TABLET.DR (FP) PO SCH ×2 (10:00)
--- NOTE | 2017-11-08 11:22 | PN ---
Progress Note, Physician History of Present Illness: Pt with posterior midline perirectal abscess, s/p I&D with drain placement. Feeling much better, had tylenol for pain with good effect. Ambulated, voided, no BM yet. Tolerated diet. No complaints. - Current Medication List Current Medications: Active Medications Acetaminophen (Tylenol -) 650 mg PO Q6H [facility] Last Admin: 11/08/17 08:45 Dose: 650 mg Bisacodyl (Dulcolax -) 10 mg PO DAILY [facility] Last Admin: 11/08/17 09:35 Dose: 10 mg Docusate Sodium (Colace -) 300 mg PO HS [facility] Last Admin: 11/07/17 21:07 Dose: 300 mg Clindamycin Phosphate (Cleocin 600 Mg Premix Ivpb -) 600 mg in 50 mls @ 100 mls /hr IVPB Q8H-IV KAMALA; Protocol Last Admin: 11/08/17 09:35 Dose: 100 mls/hr Meropenem 1 gm/ Dextrose 100 mls @ 200 mls/hr IVPB Q8H-IV KAMALA Last Admin: 11/08/17 10:18 Dose: 200 mls/hr Ibuprofen (Motrin -) 600 mg PO Q6H [facility] Last Admin: 11/08/17 05:53 Dose: Not Given - Objective Vital Signs: Vital Signs Temperature 97.9 F 11/08/17 06:00 Pulse Rate 76 11/08/17 06:00 Respiratory Rate 20 11/08/17 06:00 Blood Pressure 108/89 11/08/17 06:00 O2 Sat by Pulse Oximetry (%) 100 11/07/17 22:00 Constitutional: Yes: Well Nourished, No Distress, Calm Eyes: Yes: Conjunctiva Clear, EOM Intact HENT: Yes: Atraumatic, Normocephalic ...Rectal Exam: Yes: Hemorrhoids/External (skin tag anteriorly), Inflammation ( decreased in posterior midline), Other (drain in place, serosang on gauze, no purulence, no active output). No: Induration Extremities: No: Cool, Cyanosis Integumentary: Yes: Incision (perirectal). No: Jaundice, Rash Wound/Incision: Yes: Sutures Intact (on drain), Dressing Removed (replaced with pad/underwear), Draining (serosang on gauze), Unapproximated Neurological: Yes: Alert, Oriented Labs: CBC, BMP 11/08/17 06:30 11/08/17 06:30 Problem List - Problems (1) Perirectal abscess Assessment/Plan: POD1 s/p I&D with drain for perirectal abscess Meropenem and Clinda per ID - need to change to oral for d/c home today continue bowel regimen to ensure soft, regular BMs - pt advised to continue Miralax and Dulcolax/bisacodyl at home with fiber and fluids pt to f/u next Wed in surgery clinic for drain removal instructions in d/c plan Code(s): K61.1 - RECTAL ABSCESS (2) Anorectal pain Assessment/Plan: much improved Code(s): K62.89 - OTHER SPECIFIED DISEASES OF ANUS AND RECTUM (3) Leukocytosis Code(s): D72.829 - ELEVATED WHITE BLOOD CELL COUNT, UNSPECIFIED Qualifiers: Leukocytosis type: unspecified Qualified Code(s): D72.829 - Elevated white blood cell count, unspecified (4) Asthma Code(s): J45.909 - UNSPECIFIED ASTHMA, UNCOMPLICATED Qualifiers: Asthma severity: mild Asthma persistence: intermittent Asthma complication type: uncomplicated Qualified Code(s): J45.20 - Mild intermittent asthma, uncomplicated
--- NOTE | 2017-11-08 11:45 | PN ---
Progress Note, Physician History of Present Illness: patient doing well no complaints post drainage patient doing well - Current Medication List Current Medications: Active Medications Acetaminophen (Tylenol -) 650 mg PO Q6H [facility] Last Admin: 11/08/17 08:45 Dose: 650 mg Bisacodyl (Dulcolax -) 10 mg PO DAILY [facility] Last Admin: 11/08/17 09:35 Dose: 10 mg Docusate Sodium (Colace -) 300 mg PO HS [facility] Last Admin: 11/07/17 21:07 Dose: 300 mg Clindamycin Phosphate (Cleocin 600 Mg Premix Ivpb -) 600 mg in 50 mls @ 100 mls /hr IVPB Q8H-IV KAMALA; Protocol Last Admin: 11/08/17 09:35 Dose: 100 mls/hr Meropenem 1 gm/ Dextrose 100 mls @ 200 mls/hr IVPB Q8H-IV KAMALA Last Admin: 11/08/17 10:18 Dose: 200 mls/hr Ibuprofen (Motrin -) 600 mg PO Q6H [facility] Last Admin: 11/08/17 05:53 Dose: Not Given - Objective Vital Signs: Vital Signs Temperature 97.9 F 11/08/17 06:00 Pulse Rate 76 11/08/17 06:00 Respiratory Rate 20 11/08/17 06:00 Blood Pressure 108/89 11/08/17 06:00 O2 Sat by Pulse Oximetry (%) 100 11/07/17 22:00 Constitutional: Yes: No Distress, Calm Cardiovascular: Yes: Regular Rate and Rhythm Respiratory: Yes: Regular, CTA Bilaterally Gastrointestinal: Yes: Normal Bowel Sounds, Soft Musculoskeletal: Yes: WNL Extremities: Yes: WNL Wound/Incision: Yes: Dressing Dry and Intact, Other (draiange tube in place) Psychiatric: Yes: Alert, Oriented Labs: CBC, BMP 11/08/17 06:30 11/08/17 06:30 INR, PTT INR 1.07 (0.82-1.09) 11/07/17 00:53 Assessment/Plan Problem List - Problems (1) Perirectal abscess Code(s): K61.1 - RECTAL ABSCESS (2) Anorectal pain Code(s): K62.89 - OTHER SPECIFIED DISEASES OF ANUS AND RECTUM (3) Leukocytosis Code(s): D72.829 - ELEVATED WHITE BLOOD CELL COUNT, UNSPECIFIED Qualifiers: Leukocytosis type: unspecified Qualified Code(s): D72.829 - Elevated white blood cell count, unspecified (4) Asthma Code(s): J45.909 - UNSPECIFIED ASTHMA, UNCOMPLICATED Qualifiers: Asthma severity: mild Asthma persistence: intermittent Asthma complication type: uncomplicated Qualified Code(s): J45.20 - Mild intermittent asthma, uncomplicated plan patient can go on bactrim for 5 more days follow up with surgery patient doing well rest as per the team
[2017-11-08 12:23] VITALS: BP 96/54; PULSE 68; TEMP 98.4
--- NOTE | 2017-11-08 13:07 | DS ---
Physical Exam: SUBJECTIVE: Patient seen and examined at bedside. No acute complaints, surgery went well, pain well-controlled. Passing flatus, normal urination, no BM as yet. OBJECTIVE: Vital Signs Period Temp Pulse Resp BP Sys/Guillaume Pulse Ox Last 24 Hr 97.9 F-99.2 F 68-86 14-20 96-121/54-89 99-100 PHYSICAL EXAM GENERAL: The patient is awake, alert, and fully oriented, in no acute distress. HEAD: Normal with no signs of trauma. EYES: PERRLA, EOMI, sclera anicteric, conjunctiva clear, no ptosis ENT: Ears normal, nares patent, oropharynx clear without exudates, moist mucous membranes NECK: Trachea midline, full range of motion, supple. LUNGS: Breath sounds equal, clear to auscultation bilaterally, no wheezes, no crackles, no accessory muscle use HEART: Regular rate and rhythm, S1, S2 without murmur, rub or gallop. ABDOMEN: Soft, nontender, nondistended, normoactive bowel sounds, no guarding, no rebound, no hepatosplenomegaly, no masses EXTREMITIES: 2+ pulses, warm, well-perfused, no edema. NEUROLOGICAL: CNII-XII intact b/l, 5/5 strength x 4 extremities, sensorium intact PSYCH: Normal mood, normal affect. SKIN: Warm, dry, normal turgor, no rashes or lesions noted Rectal: Perianal surgical incision with drain instilled, mildly tender, dressings bloody prior to change, no drainage observed LABS Laboratory Results - last 24 hr 11/07/17 11/08/17 11/08/17 13:30 06:30 06:30 WBC 12.7 H RBC 4.33 Hgb 13.2 Hct 38.0 MCV 87.8 MCH 30.5 MCHC 34.7 RDW 12.7 Plt Count 309 MPV 8.2 Absolute Neuts (auto) 10.9 Neutrophils % 85.8 H Lymphocytes % 6.5 L Monocytes % 7.5 Eosinophils % 0.0 Basophils % 0.2 Nucleated RBC % 0 Sodium 139 Potassium 4.2 Chloride 107 Carbon Dioxide 26 Anion Gap 6 L BUN 12 Creatinine 0.5 L Creat Clearance w eGFR > 60 Random Glucose 120 H Calcium 9.0 Blood Type O NEGATIVE HOSPITAL COURSE: Date of Admission:11/07/17 Patient is a 27 y/o F w/ PMHx asthma and hemorrhoids, admitted for 3-4 cm perianal abscess. Met SIRS criteria on admission based on WBC and HR, therefore septic given known source, though afebrile throughout hospitalization. CT abdomen/ pelvis showed 3.6 X 2.5 x 4.4 cm fluid collection. Closed fluctuant near-midline perianal lesion on physical exam. Surgery and ID were consulted. Patient was made NPO, given IVF with LR, placed on empiric levofloxacin and metronidazole, pain-controlled with morphine/oxycodone/tylenol/ibuprofen. The patient underwent surgical I&D on 11/07/17 without complication, and a drain was instilled in the surgical wound. Abscess specimens were sent for culture. Per ID , IV ABx was initiated with meropenem and clindamycin. On POD1, patient was clinical improved with no further complaints, passing flatus and urinating. WBC fell substantially. She was discharged with a 5 day course of Bactrim, instructions for use of tylenol/ibuprofen for further pain control, and Dulcolax /Colace bowel regimen. She was referred for followup appointments with Dr. Urbina within a week of discharge and with her primary care provider within 2 weeks. Date of Discharge: 11/08/17 Minutes to complete discharge: 40 Discharge Summary Reason For Visit: PERIRECTAL ABCESS Current Active Problems Anorectal pain (Acute) Asthma (Acute) Leukocytosis (Acute) Perirectal abscess (Acute) Condition: Improved - Instructions Diet, Activity, Other Instructions: Postoperative instructions: You had incision and drainage of perirectal abscess on 11/07/[address] Aubrey Urbina of [facility]. Activity: It is ok to resume your usual activities. You will want to keep an absorbent pad in your underwear to collect drainage. You may shower daily and should do so briefly after bowel movements to clean your bottom. The drain should stay in place until your followup appointment with the surgeon. Call the office if it flips out or seems to fall out of the abscess cavity. Pain: For pain, you may use and alternate Tylenol (acetaminophen) and/or ibuprofen every 6 hours each as needed; this means that you can take one OR the other at 3-hour intervals. If you are prescribed a Tylenol/narcotic combination for severe pain, use it instead of plain Tylenol as needed and switch back when your pain starts decreasing. Do not take more than 4000mg of acetaminophen in a day. Take medications as prescribed or indicated on the labeling. Antibiotics: Take all as prescribed. Stool softeners/laxatives: Take as prescribed and drink plenty of noncaffeinated fluids daily. Keep your bowels soft and moving. Use Miralax at least once a day, and use bisacodyl/Dulcolax 10mg orally once daily for 3 days and then any night you have not had a BM that day. Aim for 25-30g fiber daily and plenty of water. Follow-up: Call Dr. Urbina's office at [phone] to make your postop appointment (Saturday next week as advised). Clinic is held in the [facility] on the first floor of [facility]. Call the office if you have: * increasing pain not responsive to pain medication * fever of 101F or higher * vomiting * unusual or increasing bleeding or drainage from wounds * increasing redness or swelling at wound site Also, see your primary medical doctor within 1-2 weeks. Referrals: Aubrey Urbina MD [Staff Physician] - 1 Week (CALL FOR APPOINTMENT TIME) Disposition: HOME - Home Medications Comprehensive Discharge Medication List: Ambulatory Orders Albuterol Sulfate Inhaler - IH 11/07/17 Acetaminophen [Tylenol .Regular Strength -] 650 mg PO Q6H tablet 11/08/17 Ibuprofen [Motrin -] 600 mg PO Q6H tablet 11/08/17 Sulfamethoxazole/Trimethoprim [Bactrim Ds -] 1 tab PO BID #10 tablet 11/08/17 This patient is new to me today: No Emergency Visit: No Critical Care patient: No - Discharge Referral Referred to [facility] No
--- NOTE | 2017-11-09 13:49 | OP ---
DATE OF OPERATION: 11/07/2017 PREOPERATIVE DIAGNOSIS: Posterior perirectal abscess. POSTOPERATIVE DIAGNOSIS: Posterior perirectal abscess. PROCEDURE: Incision and drainage of posterior perirectal abscess. SURGEON: Aubrey Urbina MD PAINT FORMULATOR: MÓNICA Marks ANESTHESIA: General without an airway. ESTIMATED BLOOD LOSS: 5 mL FLUIDS: Crystalloid 400 mL. SPECIMEN: Culture swab to micro. DRAINS: A 24-Faroese Coude catheter tip in the abscess cavity. FINDINGS: Pus 25-30 mL evacuated. Culture taken. The tip of the catheter was left in the abscess cavity and sutured to the skin. DISPOSITION: Stable and awake, to PACU. INDICATIONS FOR PROCEDURE: Patient is a 27-year-old female with a history of controlled asthma, hemorrhoids, and IUD who presented to the emergency room with 3 days of low back, actual anorectal pain progressively worsening and then becoming associated with local swelling and more difficulty with stooling. She had no fever or chills, but did have some nausea. In the emergency room she had a low grade temperature of 99.7 and a white count of 17.8. CAT scan showed posterior perirectal abscess in the midline approximately 3.5 x 4.5 cm. She was given IV fluids, antibiotics, and pain medications, admitted to the hospitalist team overnight by the ER, and Surgery was consulted for drainage. Risks, benefits and alternatives of incision and drainage of perirectal abscess were discussed with the patient including, but not limited to bleeding, infection, injury to adjacent structures (anal sphincter), anal fistula, and alternatives inclusive of antibiotics, delayed or no surgery with attendant risks of sepsis, fistula formation, and need for more extensive surgery. Patient agrees to proceed with the operation and she is now brought to the operating room for the above procedure. Informed consent has been signed. OPERATIVE TECHNIQUE: Patient was brought to the operating room and laid supine on the operating room table. Sequential compression devices were applied to bilateral lower extremities and after sedation by Anesthesia, the patient's legs were placed up in Yellofin stirrups, in lithotomy position. Patient was also placed in Trendelenburg position. The anorectal area was prepped with Betadine and draped in sterile fashion. An initial exam under anesthesia was performed. Digital rectal exam revealed no internal masses, no purulence. Rodriguez retractor was then used to visualize all 4 sides of the anorectal canal. No obvious mucosal abnormalities were identified. No fistulous opening was identified posteriorly and no purulence was noted. External exam did show clear inflammation of the midline ridge extending from the anal verge posteriorly, approximately 3 or 4 cm. This was the area corresponding to the underlying abscess on CAT scan. A small incision was made just adjacent to the midline inflammation to the left edge with a scalpel and a very small ellipse of tissue excised with evacuation of purulent drainage. A culture swab was taken of the pus and the cavity was evacuated of 20-30 mL of pus, utilizing the suction catheter tip. A fingertip was then inserted into the abscess cavity to ensure there were no loculations to be broken up and to identify the extent of the cavity. The cavity was easily 4-5 cm deep, but palpated to be smooth-walled, and there were no internal loculations and the tip of the 24-Faroese Coude 3-way Rodriguez catheter was then placed into the abscess cavity through which the cavity was irrigated with saline solution and completely evacuated of any residual purulence and blood. Cautery was used at the skin edge and exit site of the opening to enforce hemostasis as well as some gentle pressure with gauze. The tip of the catheter was then trimmed to extend approximately 1 inch outside the cavity opening and 2 simple 2-0 nylon sutures with air knots to the skin were used to secure the catheter in place. The Betadine was then cleansed from the area. A dressing of 4x4s, and an ABD pad was placed over the area and taped in place, and patient was then taken out of lithotomy position and returned to neutral. She was awakened by Anesthesia, moved back to her stretcher and taken to the recovery room in stable condition, having tolerated the procedure well. Counts were correct at the end of the procedure. The culture was sent to Microbiology. Aubrey Urbina M.D. [id number]
== END 2017-11-08 14:17 | disposition home or self-care (01) | DRG 331 ==
LOC: JER 00:05 → JERBED 03:35 → UNDOADMIN 03:41 → JERBED 03:41 → J6S 13:11
PROVIDERS: ADMIT Internal Medicine; ATTEND Internal Medicine
PROC: 0D9P00Z Drainage of Rectum with Drainage Device, Open Approach (ICD-10-PCS; principal; 2017-11-07 12:30)
DX: K61.1 Rectal abscess (principal); K59.00 Constipation, unspecified; J45.909 Unspecified asthma, uncomplicated
CPT/HCPCS: 36415; 72193-TC; 80048; 80053; 83605; 84703; 85025; 85027; 85610; 85730; 86850; 86900; 86901; 87040; 87070; 87186; 87205; 99283-25; J1644